=== PATIENT | male | born 1985 | race Two or more races ===

== ENCOUNTER 2025-02-03 19:57 | Emergency (ER) | payer MEDICAID, SELFPAY ==
[2025-02-03 20:00] VITALS: BMI 25.8
--- NOTE | 2025-02-03 20:08 | XR_ITS ---
EXAMINATION: Ankle, left 3 views . Technique: Ankle AP, oblique, lateral 3 views Date and time of exam: February 03, 2025 2036 hours INDICATIONS: Patient fell one week ago. Ankle, ankle pain. FINDINGS: Lateral malleolar soft tissue swelling On the oblique view 2 mm chip fracture off the fibular tip No echo dislocation IMPRESSION: Tiny avulsion fracture off the fibular tip
--- NOTE | 2025-02-03 21:29 | EDNOTE_ITS ---
<Statement entered by Susana Olsen MD - 02/04/25 18:29> As co-signing physician, I was present and available for consult prn. I concur with the plan and care as documented by the midlevel provider. Lower Extremity Injury RME/HPI General Chief Complaint: Ankle/Foot Injury Stated Complaint: LEFT ANKLE SWELLING AND PAIN Time Seen by Provider: 02/03/25 20:09 Arrival date/time: 02/03/25 19:57 RME / HPI RME / HPI Narrative: 39-year-old male patient came in for evaluation regarding ankle injury. Patient sustained rollover incident left ankle, resulting to swelling, and bruising, incident happened 7 days ago. Denies any other injury. Patient is ambulatory but limping. Related Data Previous Rx's ?Medication ?Instructions ?Recorded docusate sodium 100 mg capsule 100 mg PO BID #30 caps 06/01/22 (Colace) ondansetron 4 mg disintegrating 4 mg PO Q8H PRN nausea and 06/01/22 tablet vomiting #10 tabs albuterol sulfate 90 mcg/actuation 2 puff inhalation Q 6H PRN 03/06/24 aerosol inhaler (Ventolin HFA) shortness of breath or wheezing #8.5 grams benzonatate 100 mg capsule 100 mg PO TID #14 caps 02/22 11/15 ibuprofen 800 mg tablet 800 mg PO TID PRN pain #30 t abs 03/06/24 ibuprofen 800 mg tablet 800 mg PO Q8H PRN pain #30 t abs 02/03/25 Allergies Allergy/AdvReac Type Severity Reaction Status Date / Time No Known Allergies Allergy Verified 02/03/25 19:59 Review of Systems Review of Systems Narrative Review of Systems: Review of system reviewed and within normal limits except mentioned in HPI ED Exam Narrative Physical exam: VITAL SIGNS: Reviewed. GENERAL APPEARANCE: Alert and interactive, follows commands, no acute distress, HEAD AND FACE: Non-traumatic. ENT: PERRL, pink conjunctivitis, eyelid no trauma, Mucous membrane moist. NECK: Supple, nontender, no nuchal rigidity. RECTAL: Deferred. GENITAL: Deferred. NEUROLOGICAL: Gross motor function intact sensory function intact, Appropriate for age. MUSCULOSKELETAL: low back nontender, full range of motion. EXTREMITIES: Left ankle with bruising and swelling, full range of motion. SKIN: Color pink, dry, no rash, no lacerations, no abrasions, no contusions. LYMPHATICS: Deferred. Course Quality Measures none Orders Category Date Time Status Splint / Immobilizer STAT Care 02/03/25 21:33 Active XR ankle comp LT min 3V Stat Exams 02/03/25 20:08 Completed Ibuprofen Tab [Motrin Tab] Med 02/03/25 21:34 Once 800 mg PO X1 ONE Vital Signs Vital signs: Vital Signs Temperature 98.1 F 02/03/25 21:33 Pulse Rate 74 02/03/25 21:33 Respiratory Rate 20 02/03/25 21:33 Blood Pressure 162/90 H 02/03/25 21:33 Pulse Oximetry (%) 96 02/03/25 21:33 Oxygen Delivery Method Room Air 02/03/25 21:33 Extremity Injury, Lower MDM Narrative [facility] Narrative:: 39-year-old male patient came in for evaluation regarding ankle injury. Patient sustained rollover incident left ankle, resulting to swelling, and bruising, incident happened 7 days ago. Denies any other injury. Patient is ambulatory but limping. X-ray of the ankle showed possible small avulsion fracture lateral malleolus. Ankle stirrup applied Distal neurovascular status intact post splinting. Patient data External records reviewed:: None Clinical information provided by:: patient Social determinants that could affect healthcare access:: none Patient has the following chronic illnesses:: None How is presenting disease/condition affected by chronic disease/condition?: no chronic disease Evaluation data The following diagnostics were reviewed and interpreted by me:: radiology exam(s) Lab and/or radiology exams considered but not ordered:: None Interpretation Summary: See results [facility] Medications / Prescriptions Medications or Prescriptions considered but not ordered:: None Medication administrations:: Motrin Consultations Consultation(s) initiated? (list below): No Diagnosis Extremity Injury, Lower Differential Diagnosis: ankle sprain and strain, ankle fracture and other (Avulsion fracture, lateral malleolus) Most likely diagnosis given after review of the tests above:: Ankle sprain Admission Indicated Admission indicated?: not indicated Admission Request Was there a request for admission?: No Disposition Plan Disposition Plan: Discharge Discharge Attestation Discharge Attestation: The patient was given an opportunity to ask questions and understood the discharge instructions. Discharge instructions specifically effects, indications for sooner follow up or return to the emergency department, and the expected course of current diagnosis. Patient condition: Stable Discharge Plan Plan Patient Disposition: HOME (Self Care) Discharge Disposition comment: Stable Prescriptions/Referrals Prescriptions/Med Rec: New ibuprofen 800 mg tablet 800 mg PO Q8H PRN (Reason: pain) Qty: 30 0RF No Action ondansetron 4 mg tablet,disintegrating 4 mg PO Q8H PRN (Reason: nausea and vomiting) Qty: 10 0RF docusate sodium [Colace] 100 mg capsule 100 mg PO BID Qty: 30 0RF albuterol sulfate [Ventolin HFA] 90 mcg/actuation HFA aerosol inhaler 2 puff inhalation Q6H PRN (Reason: shortness of breath or wheezing) Qty: 8.5 0RF benzonatate 100 mg capsule 100 mg PO TID Qty: 14 0RF ibuprofen 800 mg tablet 800 mg PO TID PRN (Reason: pain) Qty: 30 0RF Referrals: No Primary/Family,Physician [Primary Care Provider] - In 1 week Problem List Clinical Impression: Ankle sprain, Avulsion fracture of distal fibula Patient/Caregiver Discharge Instructions Discharge Activity: activity as tolerated Education Materials: ED Ankle Sprain (Adult) Additional Instructions: Thank you for the opportunity for serving you today. You are stable for discharged . You are advised to: Follow-up with your PCP in 1 to 2 days Return to ED for worsening of symptoms Increase oral fluids Take medication as prescribed Use your splint for the next 3 weeks you can change it after 1 week with ankle splint with metal on both sides Print Language: Romanian Stand Alone Forms: [employer] Award Info., Patient Portal Info Letter
[2025-02-03 21:33] VITALS: BP 162/90; PULSE 74; RESP 20; TEMP 36.7; O2SAT 96
[2025-02-03] MEDS: IBUPROFEN TAB 400 MG TABLET 800 MG PO (22:01)
== END 2025-02-03 22:25 | disposition home or self-care (01) ==
PROVIDERS: Emergency Provider Emergency Medicine
DX: S82.402A Unspecified fracture of shaft of left fibula, initial encounter for closed fracture (principal); X58.XXXA Exposure to other specified factors, initial encounter; S93.402A Sprain of unspecified ligament of left ankle, initial encounter
CPT/HCPCS: 73610; 99283; A9270